=== PATIENT | female | born 1995 | race Two or more races ===

== ENCOUNTER 2018-09-23 08:14 | Emergency (ER) | payer SELFPAY ==
--- NOTE | 2018-09-23 08:55 | EDM.PDOC ---
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 Patient has a known history of endometriosis. Her last period started on September 10 and finished on September 18. Her vaginal bleeding then started up again on the . His been quite heavy with clots. She does have some abdominal cramping and pain. She does complain of subjective weakness lightheadedness and near syncope. She has not had any syncope. No chest pain or shortness of breath or difficulty breathing. She is unsure if she is . No black or tarry stools. No other abdominal pain. No hematuria dysuria or urinary frequency. Patient has not been taking her medication that is for her endometriosis since monday and monday the next day the vaginal bleeding started. she does have a prescription of a medication that she has had for the past year from her primary doctor in [place].She started taking the prescription after her. Did notslow down. She took the prescription every day for 3 days which did help with the bleeding but then it returned this is the first time that she has had uses prescription in the past. [place] or bleeding problems. She is a rather poor historian at best. 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 Musculoskeletal History: Reports: None Neurological History: Reports: None Psychiatric History: Reports: None Endocrine/Metabolic History: Reports: None Hematologic History: Reports: None Immunologic History: Reports: None Oncologic (Cancer) History: Reports: None Dermatologic History: Reports: None - Infectious Disease History Infectious Disease History: Reports: None - Past Surgical History Head Surgeries/Procedures: Reports: None Social & Family History - Family History Family Medical History: Noncontributory - Tobacco Use Smoking Status *Q: Never Smoker - Caffeine Use Caffeine Use: Reports: Coffee, Soda - Recreational Drug Use Recreational Drug Use: No ED ROS GENERAL - Review of Systems Review Of Systems: ROS reveals no pertinent complaints other than HPI. ED EXAM, GI/ABD - Physical Exam Exam: See Below Exam Limited By: No Limitations General Appearance: Alert, WD/WN, No Apparent Distress Eyes: Bilateral: Normal Appearance, EOMI Ears: Normal External Exam, Normal Canal, Hearing Grossly Normal, Normal TMs Nose: Normal Inspection, Normal Mucosa, No Blood Throat/Mouth: Normal Inspection, Normal Lips, Normal Teeth, Normal Gums, Normal Oropharynx Head: Normocephalic Neck: Normal Inspection Respiratory/Chest: No Respiratory Distress, Lungs Clear, Normal Breath Sounds, No Accessory Muscle Use Cardiovascular: Normal Peripheral Pulses, Regular Rate, Rhythm, No Edema GI/Abdominal Exam: Normal Bowel Sounds, Soft, No Organomegaly, No Abnormal Bruit , Tender (Mild tenderness in the suprapubic region without guarding or rebound tenderness.). No: Distended, Guarding (Female) Exam: Vaginal Bleeding Rectal (Female) Exam: Deferred Extremities: Normal Inspection, Normal Range of Motion, Normal Capillary Refill Neurological: Alert, Oriented Psychiatric: Normal Affect, Normal Mood Skin Exam: Warm, Dry, Intact, Normal Color Course - Vital Signs Last Recorded V/S: Last Vital Signs Temp 37.2 C 09/23/18 11:13 Pulse 90 09/23/18 11:13 Resp 18 09/23/18 11:13 BP 124/76 09/23/18 11:13 Pulse Ox 100 09/23/18 11:13 - Orders/Labs/Meds Orders: Active Orders 24 hr Category Date Time Status CULTURE URINE [RM] Stat Lab 09/23/18 09:10 Received Labs: Laboratory Tests 09/23/18 09/23/18 09/23/18 Range/Units 08:40 08:40 09:10 WBC 9.6 (5.0-10.0) 10^3/uL RBC 4.07 L (4.2-5.4) 10^6/uL Hgb 10.4 L (12.0-16.0) g/dL Hct 33.3 L (37.0-47.0) % MCV 81.8 (80-100) fL MCH 25.6 L (27.0-34.0) pg MCHC 31.2 L (33.0-35.0) g/dL Plt Count 369 (150-450) 10^3/uL Neut % (Auto) 53.5 (42.2-75.2) % Lymph % (Auto) 34.9 (20.5-50.1) % [place] % (Auto) 9.8 H (2-8) % Eos % (Auto) 1.5 (1.0-3.0) % Baso % (Auto) 0.3 (0.0-1.0) % Sodium 137 (135-145) mmol/L Potassium 3.5 L (3.6-5.0) mmol/L Chloride 105 (101-111) mmol/L Carbon Dioxide 22.0 (21.0-31.0) mmol/L Anion Gap 13.5 BUN 10 (7-18) mg/dL Creatinine 0.7 (0.6-1.3) mg/dL Est Cr Clr Drug Dosing 106.09 mL/min Estimated GFR (MDRD) > 60 BUN/Creatinine Ratio 14.28 Glucose 115 H (74-105) mg/dL Calcium 8.6 (8.4-10.2) mg/dl Total Bilirubin 0.4 (0.2-1.0) mg/dL AST 36 (10-42) IU/L ALT 42 (10-60) IU/L Alkaline Phosphatase 95 (42-121) IU/L Total Protein 7.7 (6.7-8.2) g/dl Albumin 3.8 (3.2-5.5) g/dl Globulin 3.9 Albumin/Globulin Ratio 0.97 Urine Color Red (YELLOW) Urine Appearance Turbid (CLEAR) Urine pH 8.5 (5.0-9.0) Ur Specific [place] 1.015 (1.005-1.030) Urine Protein >=300 H (NEGATIVE) Urine Glucose (UA) 100 H (NEGATIVE) Urine Ketones 15 H (NEGATIVE) Urine Occult Blood Large H (NEGATIVE) Urine Nitrite Positive H (NEGATIVE) Urine Bilirubin Large H (NEGATIVE) Urine Urobilinogen 4.0 H (0.2-1.0) mg/dL Ur Leukocyte Esterase Large H (NEGATIVE) Urine RBC Packed H /HPF Urine WBC 0-5 (0-5/HPF) /HPF Ur Epithelial Cells Few /HPF Urine Bacteria Few (0-FEW/HPF) /HPF Urine HCG, Qual 09/23/18 Range/Units 09:10 WBC (5.0-10.0) 10^3/uL RBC (4.2-5.4) 10^6/uL Hgb (12.0-16.0) g/dL Hct (37.0-47.0) % MCV (80-100) fL MCH (27.0-34.0) pg MCHC (33.0-35.0) g/dL Plt Count (150-450) 10^3/uL Neut % (Auto) (42.2-75.2) % Lymph % (Auto) (20.5-50.1) % [place] % (Auto) (2-8) % Eos % (Auto) (1.0-3.0) % Baso % (Auto) (0.0-1.0) % Sodium (135-145) mmol/L Potassium (3.6-5.0) mmol/L Chloride (101-111) mmol/L Carbon Dioxide (21.0-31.0) mmol/L Anion Gap BUN (7-18) mg/dL Creatinine (0.6-1.3) mg/dL Est Cr Clr Drug Dosing mL/min Estimated GFR (MDRD) BUN/Creatinine Ratio Glucose (74-105) mg/dL Calcium (8.4-10.2) mg/dl Total Bilirubin (0.2-1.0) mg/dL AST (10-42) IU/L ALT (10-60) IU/L Alkaline Phosphatase (42-121) IU/L Total Protein (6.7-8.2) g/dl Albumin (3.2-5.5) g/dl Globulin Albumin/Globulin Ratio Urine Color (YELLOW) Urine Appearance (CLEAR) Urine pH (5.0-9.0) Ur Specific [place] (1.005-1.030) Urine Protein (NEGATIVE) Urine Glucose (UA) (NEGATIVE) Urine Ketones (NEGATIVE) Urine Occult Blood (NEGATIVE) Urine Nitrite (NEGATIVE) Urine Bilirubin (NEGATIVE) Urine Urobilinogen (0.2-1.0) mg/dL Ur Leukocyte Esterase (NEGATIVE) Urine RBC /HPF Urine WBC (0-5/HPF) /HPF Ur Epithelial Cells /HPF Urine Bacteria (0-FEW/HPF) /HPF Urine HCG, Qual Negative Meds: Medications Discontinued Medications Generic Name Dose Route Start Last Admin Trade Name Dorinda PRLyric Reason Stop Dose Admin Medroxyprogesterone Acetate 20 mg 09/23/18 11:00 09/23/18 11:13 Provera PO 09/23/18 11:01 20 mg ONETIME ONE Administration - Re-Assessments/Exams Free Text/Narrative Re-Assessment/Exam: 09/23/18 20:05 her urine is somewhat difficult to decipher as there is quite a bit of blood in there so I will culture her urine and she has no urinary symptoms. I did talk at length with Dr. Ching was documentation spec for OB today. We will place her on Provera 20 mg a day to help control her bleeding and have her follow-up with OB this week. She has not had any other care therapy [place] she [place] a full evaluation for abnormal uterine bleeding.The bleeding did improve while she was in the emergency department.Vital signs were stable as well as her hemoglobin. If her bleeding does not slow down over the next 24 hours she is to recheck as guided by Dr. Ching. Departure - Departure Time of Disposition: 11:01 Disposition: Home, Self-Care Clinical Impression: Abnormal uterine bleeding, Endometriosis - Discharge Information Prescriptions: Estrogens, Conjugated [Premarin] 20 mg PO DAILY #10 tablet Instructions: Pelvic Pain, Female, [id number], Endometriosis, Abnormal Uterine Bleeding, [id number] Forms: ED Department Discharge Additional Instructions: Lots of fluids over the next few days. Provera, 20mg a day for the next 5 days. RX given to the patient. Start tomorrow. YOU MUST SEE OB Dr. Valdivia early next week monday or monday. Return to the ED if new or worsening symptoms. - My Orders Last 24 Hours: My Active Orders 09/23/18 09:10 CULTURE URINE [RM] Stat - Assessment/Plan Last 24 Hours: My Active Orders 09/23/18 09:10 CULTURE URINE [RM] Stat Assessment:: abnormal uterine bleeding Endometriosis Plan: Lots of fluids over the next few days. Provera, 20mg a day for the next 5 days. RX given to the patient. Start tomorrow. YOU MUST SEE OB Dr. Valdivia early next week monday or monday. Return to the ED if new or worsening symptoms.
[2018-09-23 09:10] LABS: ANION GAP 13.5; CHLORIDE,CL 105 mmol/L (101-111); SODIUM,NA 137 mmol/L (135-145)
== END 2018-09-23 11:17 | disposition home or self-care (01) ==
LOC: DL.ED 08:14
DX: N93.9 Abnormal uterine and vaginal bleeding, unspecified (principal); N80.9 Endometriosis, unspecified
CPT/HCPCS: 36415; 80053; 81001; 81025; 85025; 87086; 99284; A9270